=== PATIENT | female | born 1940 | race Caucasian/White ===

== ENCOUNTER 2021-08-22 22:54 | Emergency (ER) | payer MEDICARE, OTHER, SELFPAY ==
[2021-08-22 22:56] VITALS: BP 191/73; PULSE 98; RESP 18; TEMP 36.6; O2SAT 100; BMI 18.8
[2021-08-22 23:23] LABS: Appearance Urine CLOUDY; Color Urine STRAW; Glucose Urine UA NEG (NEG); Leukocyte Esterase Urine 3+ (NEG); Nitrite Urine NEG (NEG); UACC Culture Trigger YES; Urine Blood 3+ (NEG); Urine Ketones NEG (NEG); Urine Protein 2+ MG/DL (NEG-TRACE)
[2021-08-22 23:29] LABS: Bacteria Urine 2+ /LPF; Squamous Epithelial Cell Urine 1+ /LPF; UACC CULT YES
--- NOTE | 2021-08-22 23:40 | ED.FEMALEGU ---
HPI - Female Genitourinary General Chief complaint: Urogenital-Female Stated complaint: ? uti Time Seen by Provider: 08/22/21 23:24 Source: patient Mode of arrival: ambulatory Limitations: no limitations History of Present Illness HPI Narrative: 81-year-old female who presents emergency department for evaluation of burning urination and frequency x2 days. She states that she has had burning urination for 2 days, she states that today she developed urinary frequency. She also had chills but no fever. She had fatigue. She had no nausea, vomiting, diarrhea, abdominal or flank pain. Patient states that she had a urine infection 5 years prior in the symptoms felt similar, at that time however she also had hematuria. Related Data Previous Rx's Medication Instructions Recorded cephalexin 500 mg capsule 500 mg PO BID 7 Days #14 cap 08/22/21 phenazopyridine 100 mg tablet 100 mg PO TID PRN #10 tab 08/22/21 (Pyridium) Allergies Allergy/AdvReac Type Severity Reaction Status Date / Time codeine [CODEINE] Allergy Intermediate NAUSEA & Unverified 01/20/20 15:56 VOMITING Review of Systems Review of Systems: Yes all other systems are reviewed and are negative [facility] Past Medical History [facility] Narrative: Past medical history: Hypertension. Non-Hodgkin's lymphoma treated 22 years prior. Past surgical history: Hysterectomy. Social history: She denies tobacco use. She occasionally drinks alcohol. She denies drug use. Social History Social History Advance Directives: No Physical Exam Vital Signs: Vital Signs: Last Vital Signs Temp 97.8 F 08/22/21 22:56 Pulse 98 08/22/21 22:56 Resp 18 08/22/21 22:56 BP 191/73 H 08/22/21 22:56 Pulse Ox 100 08/22/21 22:56 BMI result Body Mass Index 18.8 Const: Other: Very pleasant and cooperative female patient, she does not appear to be in distress, she answers all questions appropriately HEENT: Head: Yes normal to inspection, Yes normocephalic and Yes atraumatic Ears: external ears normal General nose exam: Normal external nose present Face and sinus: Yes normal facial exam Mouth: Normal oral and palatal mucosa present Throat: Yes posterior oropharynx normal Eyes: General: appearance normal, both eyes and all related structures Pupils: Equal, round and reactive pupils present Neck: Neck: Yes normal visual inspection, Yes no lymphadenopathy, Yes trachea midline and Yes supple Chest: Chest palpation & inspection: normal inspection of the chest and normal palpation of entire chest wall Resp: Effort & Inspection: normal respiratory effort and able to speak in complete sentences Auscultation: clear to auscultation bilaterally Cardio: Rate: regular rate Rhythm: regular rhythm Heart sounds: S1 normal heart sound present, S2 normal heart sound present and no murmurs GI: Inspection: Yes normal to inspection Palpation (GI): Soft to palpation, nontender and no guarding Auscultation: normal bowel sounds : General: Yes no CVA tenderness Back/Spine/Pelvis: Back: no CVA tenderness Skin: General skin exam: no rashes or lesions noted Neuro: Cranial nerves: Yes CN's II-XII intact bilaterally and Yes Equal, round and reactive pupils present Cognition (Neuro): normal cognition Motor exam (neuro): 5/5 motor strength present throughout Extrem: General: Yes normal to inspection Course Course Course Narrative: 81-year-old female who presents emergency department for evaluation of 2 days of dysuria, frequency, 1 day chills and fatigue. Patient's vital signs did reveal an elevated blood pressure of 191/73 otherwise were unremarkable. Her exam was normal with no CVA tenderness or suprapubic tenderness. Urinalysis revealed 2+ protein, 3+ blood, 3+ leukocyte esterase. Microscopic revealed 1-4 RBCs, 76-150 WBCs, 1+ squamous cells, 2+ bacteria. Patient's presentation and urine results are consistent with a urinary tract infection/cystitis. The patient was started on Keflex 500 mg q.12 hours x7 days, she was given her 1st dose in the emergency department. She is also given a dose of Pyridium 200 mg orally. She was given a prescription for Pyridium 100 mg 3 times a day as needed x2 days. She is given printed and verbal instructions and discharged home. MDM - Female Genitourinary Lab Data Labs: Lab Results 08/22/21 Range/Units 23:14 Urine Color STRAW Urine Appearance CLOUDY Urine pH 7.0 (5.0-8.0) Ur Specific Erhard 1.010 (1.005-1.025) Urine Protein 2+ H (NEG-TRACE) MG/DL Urine Glucose (UA) NEG (NEG) MG/DL Urine Ketones NEG (NEG) MG/DL Urine Blood 3+ H (NEG) Urine Nitrite NEG (NEG) Ur Leukocyte Esterase 3+ H (NEG) Urine RBC 1-4 (0) /HPF Urine WBC 76-150 H (0-4) /HPF Ur Squamous Epith Cells 1+ /LPF Urine Bacteria 2+ /LPF Discharge Plan Discharge Clinical Impression: Urinary tract infection Patient Disposition: Home, Self-Care Instructions: Urinary Tract Infection in Women (ED) Additional Instructions: Your symptoms are consistent with a urinary tract infection, most likely located in your bladder. Your urine sample is consistent with a urine infection, you have white blood cells and bacteria in your urine. I am starting you on an antibiotic called Keflex (cephalexin) 500 mg pills, take 1 pill every 12 hours for 7 days. I am also starting you on a medication for the burning sensation couple Pyridium (phenaxopyridine) 100 mg pills, take 1 pill every 6 hours while awake as needed for burning sensation. This medication will turn your urine bright orange. Follow-up with your doctor in 2 days. Please return to the emergency department if your symptoms get worse or if you develop any symptoms that are concerning to you. Prescriptions: New phenazopyridine [Pyridium] 100 mg tablet 100 mg PO TID PRN (Reason: Burning urination) Qty: 10 0RF cephalexin 500 mg capsule 500 mg PO BID 7 Days Qty: 14 0RF
[2021-08-22] MEDS: Phenazopyridine HCL 200 MG TABLET PO (23:57)
--- NOTE | 2021-08-23 | ED.FEMALEGU ---
HPI - Female Genitourinary General Chief complaint: Urogenital-Female Stated complaint: ? uti Time Seen by Provider: 08/22/21 23:24 Source: patient Mode of arrival: ambulatory Limitations: no limitations History of Present Illness HPI Narrative: 81-year-old female who presents the [facility] presents emergency department for evaluation of 2 days of dysuria, 1 day of fatigue, dysuria, urinary frequency and chills. She denied nausea, vomiting, abdominal pain or flank pain. She states she had a urinary tract infection 5 years prior but does not get frequent urinary tract infections. MD elicited complaint: dysuria Onset (ago): day(s) (2) Severity: mild Female Urogenital Radiation: Non-Radiating Vaginal discharge: none Vaginal bleeding: none Urinary symptoms: Dysuria and Frequency Exacerbating factors: none Relieving factors: none Associated symptoms: chills and other (Fatigue) Treatment prior to arrival: none Related Data Previous Rx's Medication Instructions Recorded cephalexin 500 mg capsule 500 mg PO BID 7 Days #14 cap 08/22/21 phenazopyridine 100 mg tablet 100 mg PO TID PRN #10 tab 08/22/21 (Pyridium) Allergies Allergy/AdvReac Type Severity Reaction Status Date / Time codeine [CODEINE] Allergy Intermediate NAUSEA & Unverified 01/20/20 15:56 VOMITING ibuprofen [From Motrin] Allergy Seizure Verified 08/23/21 00:01 Review of Systems Review of Systems: Yes all other systems are reviewed and are negative [facility] Past Medical History [facility] Narrative: Past medical history: Hypertension, non-Hodgkin's lymphoma 22 years prior. Past surgical history: Hysterectomy social history: She denies tobacco use. She occasionally drinks alcohol. She denies drug use. Social History Social History Advance Directives: No Physical Exam Vital Signs: Vital Signs: Last Vital Signs Temp 97.8 F 08/22/21 22:56 Pulse 98 08/22/21 22:56 Resp 18 08/22/21 22:56 BP 191/73 H 08/22/21 22:56 Pulse Ox 100 08/22/21 22:56 BMI result Body Mass Index 18.8 Const: General: cooperative and no acute distress Orientation/consciousness: oriented to person and oriented to place Limitations: no limitations HEENT: Head: Yes normal to inspection, Yes normocephalic and Yes atraumatic Ears: external ears normal General nose exam: Normal external nose present Face and sinus: Yes normal facial exam Mouth: Normal oral and palatal mucosa present Throat: Yes posterior oropharynx normal Eyes: General: appearance normal, both eyes and all related structures Pupils: Equal, round and reactive pupils present Neck: Neck: Yes normal visual inspection, Yes no lymphadenopathy, Yes trachea midline and Yes supple Chest: Chest palpation & inspection: normal inspection of the chest and normal palpation of entire chest wall Resp: Effort & Inspection: normal respiratory effort and able to speak in complete sentences Auscultation: clear to auscultation bilaterally Cardio: Rate: regular rate Rhythm: regular rhythm Heart sounds: S1 normal heart sound present, S2 normal heart sound present and no murmurs GI: Inspection: Yes normal to inspection Palpation (GI): Soft to palpation, nontender and no guarding Auscultation: normal bowel sounds : General: Yes no CVA tenderness Back/Spine/Pelvis: Back: no CVA tenderness Skin: General skin exam: no rashes or lesions noted Neuro: General: oriented to person and oriented to place Cranial nerves: Yes CN's II-XII intact bilaterally and Yes Equal, round and reactive pupils present Cognition (Neuro): normal cognition Motor exam (neuro): 5/5 motor strength present throughout Extrem: General: Yes normal to inspection Psych: Appearance: grossly normal Speech and movement: Normal speech and movement present Affect: normal affect Attitude: cooperative Thought process: Normal thought process present Thought content: Normal thought content present Course Course Course Narrative: 81-year-old female who presents emergency department for evaluation of 2 days of dysuria, frequency, fatigue and chills. Vital signs revealed an elevated blood pressure of 191/73 otherwise unremarkable. Exam was otherwise unremarkable with no abdominal tenderness or flank tenderness. Urinalysis revealed 3+ blood, 3+ leukocyte esterase. Microscopic analysis revealed 1-4 RBCs, 76-150 WBCs, 2+ bacteria. Patient's presentation is consistent with urinary tract infection. The patient was started on Keflex 500 mg twice a day for 7 days and Pyridium. She was given her 1st dose of these medications here in the emergency department she was given printed and verbal instructions and discharged home. MDM - Female Genitourinary Lab Data Labs: Lab Results 08/22/21 Range/Units 23:14 Urine Color STRAW Urine Appearance CLOUDY Urine pH 7.0 (5.0-8.0) Ur Specific Kirk 1.010 (1.005-1.025) Urine Protein 2+ H (NEG-TRACE) MG/DL Urine Glucose (UA) NEG (NEG) MG/DL Urine Ketones NEG (NEG) MG/DL Urine Blood 3+ H (NEG) Urine Nitrite NEG (NEG) Ur Leukocyte Esterase 3+ H (NEG) Urine RBC 1-4 (0) /HPF Urine WBC 76-150 H (0-4) /HPF Ur Squamous Epith Cells 1+ /LPF Urine Bacteria 2+ /LPF Discharge Plan Discharge Clinical Impression: Urinary tract infection Patient Disposition: Home, Self-Care Instructions: Urinary Tract Infection in Women (ED) Additional Instructions: Your symptoms are consistent with a urinary tract infection, most likely located in your bladder. Your urine sample is consistent with a urine infection, you have white blood cells and bacteria in your urine. <del>I</del> <del>am</del> <del>starting</del> <del>you</del> <del>on</del> <del>an</del> <del>antibiotic</del> <del>called</del> <del>Keflex</del> <del>(cephalexin)</del> <del>500</del> <del>mg</del> <del>pills,</del> <del>take</del> <del>1</del> <del>pill</del> <del>every</del> <del>12</del> <del>hours</del> <del>for</del> <del>7</del> <del>days.</del> Take Macrobid 1 pill every 12 hours x5 days. I am also starting you on a medication for the burning sensation couple Pyridium (phenaxopyridine) 100 mg pills, take 1 pill every 6 hours while awake as needed for burning sensation. This medication will turn your urine bright orange. Follow-up with your doctor in 2 days. Please return to the emergency department if your symptoms get worse or if you develop any symptoms that are concerning to you. NB: I was contacted by the pharmacist at [facility] stating that the patient has cephalosporins listed as an allergy. The patient denies this however given this reported allergy I decided to treat the patient with Macrobid instead. Patient was given Macrobid here in the emergency department. She is to take Macrobid b.i.d. for 5 days. Prescriptions: New phenazopyridine [Pyridium] 100 mg tablet 100 mg PO TID PRN (Reason: Burning urination) Qty: 10 0RF cephalexin 500 mg capsule 500 mg PO BID 7 Days Qty: 14 0RF
[2021-08-23] MEDS: Nitrofurantoin Monohyd/M-Cryst 100 MG CAPSULE PO (00:03)
== END 2021-08-23 00:16 | disposition home or self-care (01) ==
PROVIDERS: Emergency Provider Emergency Medicine Emergency Medical Services; PCP Internal Medicine
DX: N39.0 Urinary tract infection, site not specified (principal); I10 Essential (primary) hypertension
CPT/HCPCS: 81001; 87086; 87088; 87186; 99283; 99284

== ENCOUNTER 2024-05-24 08:30 | Day surgery (SDC) | payer MEDICARE, OTHER, SELFPAY ==
--- OUTSIDE RECORDS SUMMARY | 2024-04-14 01:39 | XMS_ITS | Continuity of Care Document ---
Author Organization [facility] Address [address] [place] [address]- Care Team Providers Care Office Asst Name Role Phone Paula Burris MD Primary Care [id number] Date(s): 03/18/24 - 03/25/24 [facility] [address] [place], [place] [address] Encounter Diagnosis Medicare annual wellness visit, subsequent(Discharge Diagnosis) - 03/18/24 Hypertension(Discharge Diagnosis) - 03/18/24 History of squamous cell carcinoma of skin(Discharge Diagnosis) - 03/18/24 Attending Physician: Paula Burris MD Encounter Type: Office Visit Allergies, Adverse Reactions, Alerts Substance Criticality Severity Reaction Reaction Severity Status codeine Active Advil seizures Active Aleve seizures Active Immunizations Given and Recorded Vaccine Date Status Refusal Reason influenza virus vaccine, inactivated 03/13/23 Give n influenza virus vaccine, inactivated 03/11/22 Give n influenza virus vaccine, inactivated 1 03/05/21 Gi michael influenza virus vaccine, inactivated 03/06/18 Eddie rded influenza virus vaccine, inactivated 2 02/17/17 Re corded influenza virus vaccine, inactivated 3 02/19/16 Re corded influenza virus vaccine, inactivated 03/05/14 Eddie rded influenza virus vaccine, inactivated 4 01/28/13 Re corded influenza virus vaccine, inactivated 5 02/20/12 Gi michael influenza virus vaccine, inactivated 02/17/12 Eddie rded influenza virus vaccine, inactivated 6 12/31/10 Gi michael influenza virus vaccine, inactivated 7 01/22/10 Gi michael zoster vaccine, inactivated 07/08/22 Recorded Zoster Vaccine Live 03/19/22 Recorded [id number] bivalent booster vax 03/19/22 Recorded SARS-CoV-2 (COVID-19) mRNA BNT-162b2 vac 04/30/21 Recorded SARS-CoV-2 (COVID-19) mRNA BNT-162b2 vac 08/05/20 Given SARS-CoV-2 (COVID-19) mRNA BNT-162b2 vac 07/15/20 Given Influenza Virus Vaccine (oldterm) 02/17/20 Recorde d Influenza Virus Vaccine (oldterm) 02/22/19 Recorde d tetanus-diphtheria toxoids (Td) 08/04/18 Recorded tetanus-diphtheria toxoids (Td) 04/25/16 Given tetanus-diphtheria toxoids (Td) 8 02/11/07 Given tetanus-diphtheria toxoids (Td) 9 11/18/06 Given pneumococcal 13-valent vaccine 10 04/25/15 Recorde d Fluzone Preservative-Free (oldterm) 11 02/20/15 Re corded influ virus vac, H1N1, inactive(oldterm) 12 05/16/09 Given Influenza Inactive (IM) (oldterm) 02/10/07 Given Pneumococcal Vaccine (oldterm) 02/11/06 Given 1Result Comment: [facility] [id number] 2Result Comment: [02/19/2017] done at [facility] form received HIGH DOSE 3Result Comment: [03/04/2016] DONE AT [facility] FORM RECEIVED HIGH DOSE 4Result Comment: [01/29/2013] DONE AT [facility] FORM RECEIVED 5Admin Note: [facility] 6Admin Note: per pt receive ated [facility] 7Admin Note: given at [facility], all info from form 8Admin Note: [facility] 9Admin Note: OFFERED 10Result Comment: [05/02/2016] done at pharmacy... per pt 11Result Comment: [02/28/2015] high dose 12Admin Note: PER [facility] FORM Medications Biotin 0 Refills, Maintenance, 04/24/15 10:30:31 AM EST Start Date: 04/24/15 Status: Ordered Repeat number: 1 Estrace Vaginal Cream 0.1 mg/g = 1 Gm, Vaginally, Daily at bedtime, Use nightly at bedtime for 2 weeks, then use twice a week at bedtime, # 42.5 Gm, 2 Refills, Maintenance, 09/22/23 10:23:00 AM EDT, [facility]/pharmacy #[id number], Partial fillupon patient request if the prescription is for a schedule II opioid drug., 163, cm, 09/22/23 10:11:00 EDT, Height, 51.3, kg, 09/22/23 10:11:00 EDT, Dry Weight Start Date: 09/22/23 Status: Ordered Quantity: 42.5 Unit: g Repeat number: 3 fexofenadine 180 mg oral tablet 1 tablet, By Mouth, Daily, NOT COVERED, [facility]., # 90 tablet, 1 Refills, Maintenance, 03/18/24 10:29:00 AM EST, [facility]/pharmacy #[id number], 163, cm, 03/18/24 10:08:00 EST, Height, 51.3, kg, 09/22/23 10:11:00 EDT, Dry Weight Start Date: 03/18/24 Status: Ordered Quantity: 90.0 Unit: tablet Repeat number: 2 losartan 25 mg oral tablet 25 mg, 1, tablet, By Mouth, 2 times a day, # 180 tablet, Refills 1, Tot. Refills 1, Maintenance, 03/18/24 10:29:00 AM EST, Route to Pharmacy Electronically, [facility]/pharmacy #[id number], Partial fill upon patient request if the prescription is for a schedule II opioid drug., 163, cm, 03/18/24 10:08:00 EST, Height, 51.3, kg, 09/22/23 10:11:00 EDT, Dry Weight Start Date: 03/18/24 Stop Date: 09/14/24 Status: Ordered Quantity: 180.0 Unit: tablet Repeat number: 2 PreserVision 0 Refills, Maintenance, 06/16/23 11:47:00 AM EST, Partial fill upon patient request if the prescription is for a schedule II opioid drug. Start Date: 06/16/23 Status: Ordered Repeat number: 1 Triamcinolone Once, 0 Refills, Maintenance, 06/16/23 11:47:00 AM EST, Partial fill upon patient request if the prescription is for a schedule II opioid drug. Start Date: 06/16/23 Status: Ordered Repeat number: 1 Problem List Condition Confirmation Course Effective Dates Status H ealth Status Informant Hypertension Confirmed Active Genitourinary syndrome of menopause Confirmed Active History of squamous cell carcinoma of skin Confirmed Active Lymphoma Confirmed Active Diagnosis Diagnosis Type Effective Dates Health Status Clinical Service Informant Medicare annual wellness visit, subsequent Discharge Diagnosis 03/18/24 Hypertension Discharge Diagnosis 03/18/24 History of squamous cell carcinoma of skin Discharge Diagnosis 03/18/24 Vital Signs Most recent to oldest [Reference Range]: 1 2 3 Height 163.00 cm (03/18/24 10:47 AM) 163.00 cm (03/18/24 10:08 AM) 163.00 cm (03/18/24 10:07 AM) Weight 51.6 kg (03/18/24 10:07 AM) Oxygen Saturation [94-100 %] 98 % (03/18/24 10:07 AM) Pulse Rate [55-90 bpm] 78 bpm (03/18/24 10:07 AM) Body Mass Index [18.5-24.99 kg/m2] 19.42 kg/m2 (03/18/24 10:07 AM) Blood Pressure [90-138/55-84 mm Hg] 180/70mm Hg *H* (03/18/24 10:47 AM) 200/86mm Hg *H* (03/18/24 10:08 AM) 189/86mm Hg *H* (03/18/24 10:07 AM) Blood pressure sites Arm, left (03/18/24 10:07 AM) Weight Obtained Via Standing scale (03/18/24 10:07 AM) Social History Social History Type Response Smoking Status Former smoker; Type: Cigarettes; Other: quit at age 21; Number of years: 3; entered on: 04/24/15 Sex Sex Representation Female (finding) Note * Veronika Valadez: PERFORM Event Display: Patient Education/Instruction Authored Date: Ambulatory Adult Visit Summary [facility] [address] [place], [place] [id number] Name: RODO MARTÍNEZ : 1940?? Visit: 03/18/2024 09:53?? Ambulatory Visit Instructions ?? Your Care Team Primary Care Provider Paula Burris MD? This Visit Provider Paula Burris MD Your Diagnosis Medicare annual wellness visit, subsequent Hypertension History of squamous cell carcinoma of skin Vitals Signs Pulse Rate: 78 bpm Height: 163 cm Systolic Blood Pressure:??180 mm Hg??High Weight: 51.6 kg Diastolic Blood Pressure: 70 mm Hg Body Mass Index: 19.42 kg/m2 Oxygen Saturation: 98 % Body surface area: 1.53 What to do next Follow-Up Appointments Follow Up with??Paula Burris MD When:??09/16/2024 08:40 AM EDT Where: [facility] [place] [address]- Follow up Appointment - Ordered?-- 6 months, 03/18/24 10:31:00 EST Future Orders CBC w/ Differential - Routine, Once, 03/18/24 10:31:00 EST, Order for Today, [facility], Blood?? Basic Metabolic Panel - Routine, Once, 03/18/24 10:31:00 EST, Order for Today, [facility], Blood?? Hepatic Function Panel - Routine, Once, 03/18/24 10:31:00 EST, Order for Today, [facility], Blood?? Thyroid Panel - Routine, Once, 03/18/24 10:31:00 EST, Order for Today, [facility], Blood?? Medications The list below reflects the information in our records and provided by you today along with any changes made during this visit. Please continue your medications until treatment is completed or stopped by your provider. If this is different from the information you have or there are other questions,please contact the prescribing provider. What How Much When Instructions Changed Multivitamin With Minerals (PreserVision) Unchanged Biotin Unchanged Estradiol Topical (Estrace Vaginal Cream 0.1 mg/ g) 1 gram Vaginally Daily at Bedtime Use nightly at bedtime for 2 weeks, then use twice a week at bedtime ?? Unchanged Fexofenadine (fexofenadine 180 mg oral tablet) 1 tab(s) Oral Daily NOT COVERED, [facility]. ?? Pickup at [facility]/pharmacy #[id number] Unchanged Losartan (losartan 25 mg oral tablet) 1 tab(s) Oral Twice a day Duration: 90 Days Pickup at [facility]/pharmacy #[id number] Unchanged Triamcinolone Once Pharmacy Information [facility]/pharmacy #[id number]: [address] [place] [phone] ?? What How Much When Comments Stop Taking Triamcinolone Topical (triamcinolone 0.1% topical cream) 1 bertin Topically Twice a day Duration: 14 Days Test Performed Below is a partial list of the tests performed during your Visit. You may have had other tests and procedures not included in this list. Please discuss all test results with your provider. Basic Metabolic Panel?-- Results Pending -- CBC w/ Differential?-- Results Pending -- Hepatic Function Panel?-- Results Pending -- Thyroid Panel?-- Results Pending -- Medications and Immunizations Administered Medications Given During Visit No medications given during this visit.?? Allergies (NKA means No Known Allergies) Advil??(seizures) Aleve??(seizures) codeine Common Emergency Awareness Tips IS IT A STROKE? Act FAST and Check for these signs: FACE Does the face look uneven? ARM Does one arm drift down? SPEECH Does their speech sound strange? TIME Call at any sign of stroke ?? Heart Attack Signs Chest discomfort: Most heart attacks involve discomfort in the center of the chest and lasts more than a few minutes, or goes away and comes back. It can feel like uncomfortable pressure, squeezing, fullness or pain. Discomfort in upper body: Symptoms can include pain or discomfort in one or both arms, back, neck, jaw or stomach. Shortness of breath: With or without discomfort. Other signs: Breaking out in a cold sweat, nausea, or lightheaded. Remember, MINUTES DO MATTER. If you experience any of these heart attack warning signs, call to get immediate medical attention! ?? Smoking can increase your chances of developing chronic health problems and can cause harmful effects to other family members in your house. If you smoke, you are strongly encouraged to quit. Please call [employer] at [phone] or [phone] ([phone]) or log in to [email or web address] for referrals to smoking cessation programs. ?? The National Suicide Prevention Hotline is available 25/11 if you or someone you know needs to find a reason to keep living. By calling 2-212-376-saoc (1178) you'll be connected to a skilled, trained counselor at a crisis center in your area. [facility] [employer] Portal You can view and manage your care through the patient portal or by using a health care bertin of your choosing. [employer] is a website that allows you to securely view your medical information including your hospital discharge summary, office visit summaries, medications and follow-up visits. You can also request appointments, renew medications, and request access to your medical information using a health care bertin of your choosing, or just ask a question. You can enroll at [email or web address] or register during your next office visit. [facility], in keeping with [facility] guidance, no longer requires face masks for staff, patientsor visitors in most situations. Similiar to time spent indoors at other locations, there is the chance that you were exposed to repiratory viruses during your time with us (such as flu or COVID-19). If you develop symptoms concerning for a viral respiratory infection, please seek testing (and treatment if indicated) from your medical provider or home test kit. ?? Disclaimer: The information provided is of a general nature and is intended to be used in conjunction with the recommendations and advice of your health care practitioner. Every effort has been made to ensure that the information provided is accurate and complete at the time it is provided to you however, as your needs change, or, as new information becomes available, different or additional instructions may be required. ?? If you have questions, please consult with your primary care provider or pharmacist, as appropriate. This information is not intended to serve as substitution for assessment and evaluation by a qualified health care provider. If you do not have a primary care provider, you may find a [facility] provider by calling [facility] [employer] Link at [phone]. Patient Care team information Care Team Personnel Name: Zara Jara Position: [facility] Onco RN Member Role: Primary Care Nurse Name: Paula Burris MD Position: [facility] Physician - Primary Care Member Role: PCP Address: [address] [place] [address] Adult and Pediatric Medicine [address] Telecom: Name: Michell Olvera Position: [facility] Sourcing Specialist Member Role: Medicaid Collection Specialist Care Team Related Persons Name: HIWOT MARTÍNEZ Name: EULALIO STUBBS Name: SHEA LANDA Insurance Providers Guarantor name: RODO MARTÍNEZ Health Plan Information #: 2 Payer: [facility] Member Number: [id number] Policy Number: NA Group Number: [id number] Health Plan Information #: 1 Payer: MEDICARE PART B OUTPT Member Number: [id number] Policy Number: NA Group Number: NA
--- OUTSIDE RECORDS SUMMARY | 2024-04-14 01:40 | XMS_ITS | Data Portability ---
Author Organization [place] - [facility], Allergy Address [address] [address] Care Team Providers Care Recovery Operator Helper Name Role Phone GRECIA SAGASTUME Primary Care Provider Assessment Encounter Date Assessment Date Assessment LastModified by Organization Details LastModified Time 04/09/2024 04/09/2024 84-year-old female presents for cerumen removal. Cerumen impaction removed bilaterally. Bilateral tympanic membranes are intact with well aerated middle ear spaces. She will follow-up in 4 months for routine debridement, or sooner with any concerns. [email or web address] Not available 04/09/2024 11:35:04 Plan of Treatment Reminders Order Date Submit Date Provider Last Modified By Organization Details Last Modified Time Details Appointments Establish ed 15 2024 10:30A M CATHRYN ORTIZ PA-C Not available Not available Not available Lab None recorded. Referral None recorded. Procedures None recorded. Surgeries None recorded. Imaging None recorded. Medication Orders None recorded. Patient TargetsNo targets recorded. Patient InstructionsNo instructions recorded. Reason for Referral None Reported. Problems Name Problem SNOMED Code Status Onset Date Resolution Date Notes Provider Name and Address Organization Details Recorded Time Impacted cerumen of bilateral ears 87512207902 43364 Active 2021 Impacted cerumen, bilateral ; Note: Date Diagnosed : 01/17/2022 4:33 PM (H61.23) Not Available [facility] 02:51:38 Abrasion of skin of left ear 25026387571 730985 Active 2021 Abrasion of left ear, initial encounter ; Note: Date Diagnosed : 01/17/2022 5:11 PM (S00.412A ) Not Available [facility] 4 02:51:37 Sensorine ural hearing loss of bilateral ears 251712373 Active 2021 Sensorine ural hearing loss, bilateral ; Note: Date Diagnosed : 01/17/2022 4:42 PM (H90.3) Not Available [facility] 4 02:51:35 Problem Notes None recorded. Procedures Surgical History Date Name Laterality Status Provider Name and Address Organization Details Recorded Time 4 Cerumen removal without microscope bilat completed CATHRYN ORTIZ PA-C [address] [place] [address],[address], [address], [facility] - [facility] 04/09/2024 11:18:47 Imaging Results None recorded. Procedure Notes None recorded. Medical Equipment None Reported. Allergies Allergen ID Allergen Name Allergen Category Reaction Reaction Severity Criticality Documentation Date Start Date Code Code System Note Provider Name and Address Organization Details Recorded Time [id number] naproxen medicatio n other Not available Not available 09/16/2023 7258 RxNorm React ion: Unkno wn; Not Available [facility] 4 01:14:45 633995 codeine medicatio n other Not available Not available 09/16/2023 2670 RxNorm React ion: Unkno wn; Not Available [facility] 4 01:14:46 Medications Name Sig Start Date Stop Date Status Note LastModified by Organization Details LastModified Time sodium chloride 5 % eye drops active Medicati on ID: 550396 B rand Name: sodium chloride Send Method: E-Prescr ibed Sub s Allowed: subs OK Speci al Instruct ion: INSTILL 1 DROP IN BOTH EYES THREE TO FOUR TIMES A DAY Medi cationGe nericNam e: sodium chloride Not Available Not Available Not Available amlodipin e 2.5 mg tablet 04/09 completed Medicati on ID: 641081 B rand Name: amlodipi ne Send Method: E-Prescr ibed Sub s Allowed: subs OK Medic ationGen ericName : amlodipi ne Not Available Not Available Not Available fexofenad ine 180 mg tablet TAKE 1 TABLET BY MOUTH EVERY DAY active Not Available Not Available No t Available triamcino lone acetonide 0.1 % topical cream APPLY TO AFFECTED AREA TWICE A DAY FOR 14 DAYS 04/09 completed Not Available Not Available Not Available betametha sone valerate 0.1 % topical cream USE 1 APPLICAT ION TOPICALL Y DAILY FOR 7 DAYS 04/09 completed Not Available Not Available Not Available losartan 25 mg tablet TAKE 1 TABLET BY MOUTH TWICE A DAY active Not Available Not Available No t Available estradiol 0.01% (0.1 mg/gram) vaginal cream PLEASE SEE ATTACHED FOR DETAILED DIRECTIO NS active Not Available Not Available No t Available Vitals None Recorded Social History None recorded. Functional Status None recorded. Mental Status None recorded. Family History Nothing Reported. Medical History Condition Response Hypertension Y Gynecological HistoryNo gynecological history recorded. Obstetrics History GPAL:G 0 P 0 0 0 0 Past Encounters Encounter ID Performer Location Encounter Start Date Encounter Closed Date Diagnosis/Indication Diagnosis SNOMED-CT Code Diagnosis ICD10 Code [id number] MAX TESFAYE MD [facility] [address] [phone] 04/09/2024 11:13:37 04/09/2024 11:56:17 Impacted cerumen of bilateral ears [id number] 898607 H61.23 Health Concerns Section Related Observation LastModified by Organization Detai ls LastModified Time None Recorded Concern Status LastModified by Organization Details LastModified Time None Recorded Advance Directives Directive None Recorded Payers Encounter Date Sequence Insurance Name Policy Number Policy Childress Covered Member ID Childress Member ID Guarantor Name 04/09/2024 2 [employer] - [facility] [id number] Wendi Lay [id number] Wendi Lay 04/09/2024 1 [place]IC[place] [employer] Wendi Lay [id number] Wendi Lay Notes Date Note Type Note Provider Name and Address Organization Details Recorded Time 04/09/2024 text/html 84-year-old female presents for cerumen removal. She is followed by Anne in audiology. No concerns today. MAX TESFAYE MD [address] [place] [address], [phone], [facility] - [facility] 04/09/2024 17:07:33 OBGyn Episode No OBEpisode recorded.
--- OUTSIDE RECORDS SUMMARY | 2024-04-14 01:40 | XMS_ITS ---
Author Organization [facility] Address [address] [place] [address] Care Team Providers Care Lapping Machine Operator Name Role Phone Fatuma SHARP, Paula Primary Care Provider Unavailab Suman Hightower Unavailable [phone] Encounters Encounter Location Date Provider Diagnosis [address] [address] 01/09/2024 Suman Castaneda Plan Of Treatment Next Appt Details Provider Name:Suman Castaneda , 06/29/2024 09:00:00 AM, [address] [place] [address], [phone], Progress Notes * Wendi LYADOB: [birth year] (84 yo F)Acc No.[id number]:01/09/2024 Progress Note Patient:?Wendi LAY Provider:?Suman Castaneda DPM :1940???Age:84 Y???Sex:Female D ate:01/09/2024 Address:[address] [place] [address] Pcp:Paula Burris MD Subjective: * Chief Complaints: * ??? * Medical History:? Objective: * Vitals:? Assessment: Plan: * Treatment: * Images: * The named appointment provid er may or may not be the originator of this progress note, and it is not deemed complete until electronically signed by the appointment provider. Sign off status: Pending * Provider:?Suman Castaneda DPM Date:?2023 Generated for Gisselle reed/Chad/Yariel on:?04/14/2024 01:39 AM EST
--- OUTSIDE RECORDS SUMMARY | 2024-04-14 01:40 | XMS_ITS ---
Author Organization [facility] Address [address] [place] [address] Care Team Providers Care Manager Fiber Name Role Phone Paula Burris MD Primary Care Provider Unavailab Suman Hightower Unavailable [phone] Allergies Allergen (clinical drug ingredient) Drug/Non Drug Allergy documented on EMR Reaction Allergy Type Onset Date Status ibuprofen Advil Unknown Drug Allergy Active naproxen Aleve Unknown Drug Allergy Active codeine Codeine Unknown Drug Allergy Active REASON FOR VISIT At Risk Footcare, Painful Nail(s) aggrevated by shoes and causing difficulty standing/walking., Painful Toe/Nail(s) Medications Medication SIG (Take, Route, Frequency, Duration) Notes Start Date End Date Status amLODIPine Besylate 5 MG 1 tablet Orally Once a day for 30 days am Not-Taking Biotin Active Doxycycline Hyclate 100 MG 1 capsule Orally Once a day for 10 day(s) Antibiotic for 10 days Active Biotin Active amLODIPine Besylate 2.5 MG 1 tablet Orally Once a day for 30 day(s) pm Not-Taking PreserVision AREDS A ctive Vitamin C Active Losartan Potassium 50 MG 1 tablet Orally Once a day twice a day Active Doxycycline 10 days Not-Taki ng Estradiol 0.1 MG/GM as directed Vaginal Active Zinc Active Vitamin D3 Active Probiotic Not-Taking PreserVision AREDS A ctive Ammonium Lactate 12 % 1 application to affected area Externally to feet Twice a day for 30 days Active Multivitamin Active Social History Tobacco Use: Social History Observation Description Date Details (start date - stop date) Former Smoker NA - NA Tobacco Use/Smoking Question Answer Notes Are you a: former smoker Additional Findings: Tobacco Non-User Current no n-smoker Tobacco use other than smoking: Question Answer Notes Are you an other tobacco user? No Vital Signs Height 64.17 in 02/27/2024 Weight 108 lbs 02/27/2024 BMI 18.44 kg/m2 02/27/2024 Procedures Procedure Date Ordered Date Performed Result Body Sit e 15988-UPEVQMS NAIL, 6 OR MORE 02/27/2024 N/A 18714-ZERY SKIN LESIONS, OVER 4 02/27/2024 N/A Encounters Encounter Location Date Provider Diagnosis [facility] [place] [address] [place] [address] 02/27/2024 Suman Castaneda Atherosclerosis of red devil artery of both lower extremities, with unspecified presence of clinical manifestation I70.203 ; Tinea unguium B35.1 ; Pain in right toe(s) M79.674 ; Pain in left toe(s) M79.675 and Subungual hematoma of left foot, initial encounter S90.222A Assessments Encounter Date Diagnosis (ICD Code) Assessment Notes Treatment Notes Treatment Clinical Notes Section Notes 02/27/2024 Atherosclerosis of red devil artery of both lower extremities, with unspecified presence of clinical manifestation (ICD-10 - I70.203) 02/27/2024 Tinea unguium (ICD-10 - B35.1) 02/27/2024 Pain in right toe(s) (ICD-10 - M79.674) 02/27/2024 Pain in left toe(s) (ICD-10 - M79.675) 02/27/2024 Subungual hematoma of left foot, initial encounter (ICD-10 - S90.222A) 02/27/2024 Other Plan Of Treatment Pending Test Test Name Order Date 03545-ZGHQRFV NAIL, 6 OR MORE 02/27/2024 06666-MCKN SKIN LESIONS, OVER 4 02/27/20 24 Next Appt Details Follow Up: prn, Reason: Provider Name:Suman Castaneda , 06/29/2024 09:00:00 AM, [address] [place] [address], [address], Procedure Notes * Category Sub-Category Detail Notes Debride Nail 6-10 Nail debridement Nail debridem ent procedure description should have stated: Performance of this nail treatment by a nonprofessional would put this patients foot and overall health at risk. Therefore, nail debridement was performed extensively to reduce/remove overall nail length, girth, thickness, subungual debris, and necrotic tissue, by manual and/or electrical means through the use of a nail nipper and/or dremel-type thread grinder, to a more viable healthy nail plate or bed tissue 6-10. Silver nitrate used for any petechial bleeding as necessary. Definitive antifungal treatment options have been reviewed and discussed with the patient. The patient chooses, no pharmaceutical tx - 65558 Keratoma Treatment Parring or Cutting o f Benign Hyperkeratotic Lesion(s) (-57) More than 4 Lesions - The Benign hyperkeratotic lesions, as described above were pared, and/or cut utilizing a sterile 15 blade, tissue nippers, and/or dremel - 60806 , Q8 Progress Notes * Wendi LAYDOB: [birth year] (84 yo F)Acc No.[id number]:02/27/2024 Progress Note Patient:?HoolehuaWendi camarillo Jayy Provider:?Suman Castaneda DPM :1940???Age:84 Y???Sex:Female D ate:02/27/2024 Address:[address] [place], [place] [id number] Pcp:Paula Burris MD Subjective: * Chief Complaints: * ???At Risk FootcarePainful N ail(s) aggrevated by shoes and causing difficulty standing/walking.Painful Toe/Nail(s) * HPI: ???At Risk footcare:?Pt States Last PCP Visit:?Date?08/26/2023 States has an appt with PCP soon - first week in Nov ???Painful Nails:?Duration:?States Possible Date Of Injury - 02/22/24.? * ROS:?General/Constitutional:?Nausea?denies.?Vomiting?denies.?Hunger Thirst?denies.?Loss appetite?denies.?Chills?denies.?Fatigue?denies.?Fever?denies.?Night Sweats?denies.?Unexplained weight loss?denies.?Unexplained weight gain?denies.?HEENTM:?Dentures?denies.?Dizziness?denies.?Glasses/contacts?admits.?Retinopathy?de nies.?Blurred/double vision?denies.?TMJ?denies.?Discharge/drainage?denies.?Implants?denies.?Sore throat?denies.?Dental implants?denies.?Hard of hearing ?admits.?Difficulty chewing/swallowing/speaking?denies.?Nose bleeds?denies.?Sore mouth?denies.?Respiratory:?On Oxygen?denies.?Pneumonia/pleurisy?denies.?Bronchitis?denies.?Emphysema?denies.?C oughing?denies.?Cough blood?denies.?Shortness of breath?denies.?Wheezing?denies.?Cardiovascular:?Pacemaker?denies.?MVP?denies.?WPW?denies.?CHF?denies.?Heart attack?denies.?Septal defect?denies.?Rapid beat?denies.?Chest pain ?denies.?Atrial Fib.?denies.?Murmur/Palpitations?denies.?Gastrointestinal:?Hemorrhoids?denies.?Stomach/Abdominal pain?denies.?Dark blood stool?denies.?Irritable bowel ?denies.?Constipation?denies.?Diarrhea?denies.?Hematology:?Swelling?denies.?Clots?denies.?Varicose Veins?admits.?Bruising?denies.?Bleeding problem?denies.?Genitourinary:?Blood urine?denies.?Frequent/Painfu/urination/bladder control?denies.?Kidney stones?denies.?Infection (UTI)?denies.?Nephropathy?denies.?sex trans dis (STD)?denies.?Prostate?denies.?Musculoskeletal:?Hammertoes?admits.?Bunions?denies.?Back Pain?denies.?Muscle Cramps/ Resting?denies.?Muscle cramps / walking?denies.?Generalized aches and pains?denies.?Weakness?denies.?Integ.:?Huber?denies.?Scars?denies.?Corns/calluses?admits.?Ingrown nails?admits.?Painful nails?admits.?Open Sores?denies.?Rashes?denies.?Neurologic:?Difficulty sleeping?denies.?Brain disorder?denies.?Numbness?denies.?Balance trouble?denies.?Confusion?denies.?Fainting/blackouts?denies.?Tingling?denies.?Tr emors?denies.? * Medical History:? * Surgical History:?root canal - broke her crowns has to get them replaced Melanoma removal - Right leg - delayed healing 2023 * Hospitalization/Major Diagno stic Procedure:?Fell while jogging - injury to face: needing ER visit- sutures to her lip/mouth 04/2022 * Family History:?Mother: unkn own.?Father: unknown.? * Social History:?Tobacco Use:?Tobacco Use/Smoking?Are you a:?former smoker ?Additional Findings: Tobacco Non-User?Current non-smoker ?Tobacco use other than smoking?Are you an other tobacco user??No * Medications:?TakingLosartan Potassium 50 MG Tablet 1 tablet Orally Once a day, Notes: twice a dayVitamin C PreserVision AREDS Estradiol 0.1 MG/GM Cream as directed Vaginal Doxycycline Hyclate 100 MG Capsule 1 capsule Orally Once a day, Notes: Antibiotic for 10 daysBiotin Biotin Multivitamin PreserVision AREDS Vitamin D3 Zinc Ammonium Lactate 12 % Cream 1 application to affected area Externally to feet Twice a dayTaking Losartan Potassium 50 MG Tablet 1 tablet Orally Once a day, Notes: twice a dayTaking Vitamin C Taking PreserVision AREDS Taking Estradiol 0.1 MG/GM Cream as directed Vaginal Taking Doxycycline Hyclate 100 MG Capsule 1 capsule Orally Once a day, Notes: Antibiotic for 10 daysTaking Biotin Taking Biotin Taking Multivitamin Taking PreserVision AREDS Taking Vitamin D3 Taking Zinc Taking Ammonium Lactate 12 % Cream 1 application to affected area Externally to feet Twice a dayNot- Taking/PRNamLODIPine Besylate 5 MG Tablet 1 tablet Orally Once a day, Notes: amamLODIPine Besylate 2.5 MG Tablet 1 tablet Orally Once a day, Notes: pmProbiotic Doxycycline , Notes: 10 daysMedication List reviewed and reconciled with the patientNot-Taking/PRN amLODIPine Besylate 5 MG Tablet 1 tablet Orally Once a day, Notes: amNot-Taking/PRN amLODIPine Besylate 2.5 MG Tablet 1 tablet Orally Once a day, Notes: pmNot-Taking/PRN Probiotic Not-Taking/PRN Doxycycline , Notes: 10 daysMedication List reviewed and reconciled with the patient * Allergies:?AdvilAleveCodeine yes[Allergies Verified] Objective: * Vitals:?Ht: 64.17, Wt:108, B AR: 18.44, Shoe size:6.5, Wt-k.99 kg. * Examination: ???Vascular: ?DP PULSES(B):? 0/4, B/L.?PT PULSES(B):? 1/4, B/L.?CAPILLARY FILL TIME:? delayed, all digits, B/L.?TROPHIC CONDITION-TEXTURE/ELASTICITY/TURGOR/HAIR GROWTH(B):? decreased, with sparse to absent hair growth, B/L.?TEMPERTURE GRADIENT(C):? decreased, cool to cool, proximal to distal, B/L.?PIGMENTATION:? mottled, B/L.?EDEMA(C):?absent, B/L.?CLAUDICATION(C):?denies, B/L.?REST PAIN:?denies, B/L.?Nails: ?NAILS are:?Elongated, overgrown, dystrophic, lytic, greater than 3mm thick, discolored and friable with crumbly malodorous subungual debris, with pain on palpation, TA, T2, T3, T4, T5, T6, T8, T9 , There is evidence of pain on palpation, and an area of SUBUNGUAL HEMORRHAGIC fluid with a pre-operative size measuring approximately ( 4-5 ) mm square, TA.?Dermatologic: ?SKIN FINDINGS:? Skin exam reveals Keratotic lesion(s) located at, Dorsal, PIPJ, T8, SUB MTH (s), 1, B/L , SUB MTH (s), 5, B/L, Heel(s), B/L.? Assessment: * Assessment: 1.?Tinea unguium - B35.1?2.? Atherosclerosis of red devil artery of both lower extremities, with unspecified presence of clinical manifestation - I70.203 (Primary)?3.?Pain in right toe(s) - M79.674?4.?Pain in left toe(s) - M79.675?5.?Subungual hematoma of left foot, initial encounter - S90.222A, Acute problem, Uncomplicated (3)? Plan: * Treatment: 2.?Tinea unguium?Procedure: 23623-ZRGHSZB NAIL, 6 OR MORE * Procedures:?Debride Nail 6-10:?Nail debridement?Nail debridement procedure description should have stated: Performance of this nail treatment by a nonprofessional would put this patients foot and overall health at risk. Therefore, nail debridement was performed extensively to reduce/remove overall nail length, girth, thickness, subungual debris, and necrotic tissue, by manual and/or electrical means through the use of a nail nipper and/or dremel-type thread grinder, to a more viable healthy nail plate or bed tissue 6-10. Silver nitrate used for any petechial bleeding as necessary. Definitive antifungal treatment options have been reviewed and discussed with the patient. The patient chooses, no pharmaceutical tx - 48062.?Keratoma Treatment:?Parring or Cutting of Benign Hyperkeratotic Lesion(s)?(-57) More than 4 Lesions - The Benign hyperkeratotic lesions, as described above were pared, and/or cut utilizing a sterile 15 blade, tissue nippers, and/or dremel - 63903 , Q8.? * Procedure Codes:?60541 TRIM SKIN LESIONS, OVER 4, Modifiers: XS , [id number] DEBRIDE NAIL, 6 OR MORE, Modifiers: XS * Preventive Medicine:? ??Counseling:?Discussion:?-13: Office or other outpatient visit for the evaluation and management of an established patient, which required a medically appropriate history and/or examination and LOW level of DECISION MAKING for: 1 STABLE ACUTE UNCOMPLICATED PROBLEM, 2 OR MORE MINOR PROBLEMS, OR 1 STABLE CHRONIC PROBLEM, THAT POSE(S) A LOW RISK FOR MORBIDITY/MORTALITY. The visit on the day of the encounter encompassed interpreting the data and educating the patient as to the nature of their condition, treatment options available according to their individual PMH, meds, allergies, and overall health/living conditions, as well as any potential risks or complications that may occur from a failure to adhere to, and participate in, the recommended course of therapy. The discussion included a complete verbal, and/or written explanation of the examination results, any x-rays taken, the proposed diagnosis, and outline of the treatment plan. A schedule for future care needs was also explained. The patient verbalized an understanding of the instructions at this time and agreed to be an active participant in their treatment. If the patient should think of any questions or concerns after the visit, I have encouraged the patient to call the office.?Treatment:?SUBUNGUAL HEMATOMA - Due to this patients medical history, the plan is to treat their pathology through conservative and restorative nonsurgical means to help alleviate the patients symptomatology by utilizing some or all of the standard podiatric medical care. Recommendations were made for warm epsom salt water soaks for 20 min per day and monitor the nail or toe for any signs of infection (purulent drainage, increasing redness, red lines or streaks ascending the toe, or any increase in pain). If the patient does notice any of the preceding they are to notify the office immediately. The patient was advised of the distinct possibilty for nail auto-avulsion.? * Follow Up:?prn * Images: * Sign off status: Completed true * Provider:?Suman Castaneda DPM Date:?2023 Generated for Gisselle reed/Chad/Yariel on:?04/14/2024 01:39 AM EST History and Physical Notes * HPI (History of Present Illness) Category Sub-Category Detail Notes Category Not es Painful Nails Duration: States Possible Date Of Injury - 02/22/24 At Risk footcare Pt States Last PCP Visit: Date: 08/26/2023 States has an appt with PCP soon - first week in Nov Examination Category Sub-Category Detail Notes Category Not es Dermatologic SKIN FINDINGS: Skin exam reveal s Keratotic lesion(s) located at, Dorsal, PIPJ, T8, SUB MTH (s), 1, B/L , SUB MTH (s), 5, B/L, Heel(s), B/L Vascular DP PULSES(B): 0/4, B/L PT PULSES(B): 1/4, B/L CAPILLARY FILL TIME: delayed, all digits , B/L TEMPERTURE GRADIENT(C): decreased, cool to cool, proximal to distal, B/L TROPHIC CONDITION-TEXTURE/ELASTICITY/TURGOR/HAIR GROWTH(B): decreased, with sparse to absent hair gr owth, B/L EDEMA(C): absent, B/L CLAUDICATION(C): denies, B/L REST PAIN: denies, B/L PIGMENTATION: mottled, B/L Nails NAILS are: Elongated, overg rown, dystrophic, lytic, greater than 3mm thick, discolored and friable with crumbly malodorous subungual debris, with pain on palpation, TA, T2, T3, T4, T5, T6, T8, T9 , There is evidence of pain on palpation, and an area of SUBUNGUAL HEMORRHAGIC fluid with a pre-operative size measuring approximately ( 4-5 ) mm square, TA
--- OUTSIDE RECORDS SUMMARY | 2024-04-14 01:40 | XMS_ITS | Patient Health Record ---
Author Organization [facility] Address [address] [facility] [place] [address] Care Team Providers Care Azure Developer Name Role Phone Fatuma SHARP, Paula Primary Care Provider Unavailab Suman Hightower Unavailable [phone] Allergies Allergen (clinical drug ingredient) Drug/Non Drug Allergy documented on EMR Reaction Allergy Type Onset Date Status ibuprofen Advil Unknown Drug Allergy Active naproxen Aleve Unknown Drug Allergy Active codeine Codeine Unknown Drug Allergy Active Reason For Referral No Information Medications Medication SIG (Take, Route, Frequency, Duration) Notes Start Date End Date Status amLODIPine Besylate 5 MG 1 tablet Orally Once a day for 30 days am Not-Taking Biotin Active Doxycycline Hyclate 100 MG 1 capsule Orally Once a day for 10 day(s) Antibiotic for 10 days Active Doxycycline 10 days Not-Taki ng Estradiol 0.1 MG/GM as directed Vaginal Active Ammonium Lactate 12 % 1 application to affected area Externally to feet Twice a day for 30 days Active Multivitamin Active Biotin Active amLODIPine Besylate 2.5 MG 1 tablet Orally Once a day for 30 day(s) pm Not-Taking PreserVision AREDS A ctive Zinc Active Vitamin C Active Vitamin D3 Active Losartan Potassium 50 MG 1 tablet Orally Once a day twice a day Active Probiotic Not-Taking PreserVision AREDS A ctive Immunizations Vaccine Route Administration Date Status Comme nts COVID-19 Pfizer BioNTech Vaccine Unknown 02/02/2022 Administered 2020,2020 2020 unsure dates Social History Tobacco Use: Social History Observation Description Date Details (start date - stop date) Former Smoker NA - NA Tobacco Use/Smoking Question Answer Notes Are you a: former smoker Additional Findings: Tobacco Non-User Current no n-smoker Alcohol Screen Question Answer Notes Did you have a drink contain ing alcohol in the past year? Yes How often did you have a dri nk containing alcohol in the past year? Monthly or less (1 point) Points 1 Interpretation Negative Tobacco use other than smoking: Question Answer Notes Are you an other tobacco user? No Problems Problem Type SNOMED Code ICD Code Onset Dates Problem Status W/U Status Risk Notes Problem Atherosclerosis of three affiliated arteries of the extremities ([id number]) Atherosclerosis of three affiliated artery of both lower extremities, with unspecified presence of clinical manifestation (I70.203) Active confirmed Vital Signs Height 64.17 in 02/27/2024 Weight 108 lbs 02/27/2024 BMI 18.44 kg/m2 02/27/2024 Procedures Procedure Date Ordered Date Performed Result Body Sit e 76938-DYTWUUE NAIL, 6 OR MORE 08/26/2023 N/A 50584-KBMV SKIN LESIONS, OVER 4 08/26/2023 N/A 47295-ETVAYTU NAIL, 6 OR MORE 02/27/2024 N/A 99451-NNHR SKIN LESIONS, OVER 4 02/27/2024 N/A Encounters Encounter Location Date Provider Diagnosis [address] [address] 08/26/2023 Suman Castaneda Atherosclerosis of three affiliated artery of both lower extremities, with unspecified presence of clinical manifestation I70.203 ; Tinea unguium B35.1 ; Pain in right toe(s) M79.674 and Pain in left toe(s) M79.[address] [address] 02/27/2024 Suman Castaneda Atherosclerosis of three affiliated artery of both lower extremities, with unspecified presence of clinical manifestation I70.203 ; Tinea unguium B35.1 ; Pain in right toe(s) M79.674 ; Pain in left toe(s) M79.675 and Subungual hematoma of left foot, initial encounter S90.222A [address] [address] 06/16/2023 Suman Castaneda [address] [address] 08/26/2023 Suman Castaneda [facility] [address] [address] 12/26/2023 Suman Castaneda Assessments Encounter Date Diagnosis (ICD Code) Assessment Notes Treatment Notes Treatment Clinical Notes Section Notes 08/26/2023 Tinea unguium (ICD-10 - B35.1) 08/26/2023 Atherosclerosis of three affiliated artery of both lower extremities, with unspecified presence of clinical manifestation (ICD-10 - I70.203) 02/27/2024 Tinea unguium (ICD-10 - B35.1) 02/27/2024 Atherosclerosis of three affiliated artery of both lower extremities, with unspecified presence of clinical manifestation (ICD-10 - I70.203) 02/27/2024 Pain in right toe(s) (ICD-10 - M79.674) 08/26/2023 Pain in right toe(s) (ICD-10 - M79.674) 08/26/2023 Pain in left toe(s) (ICD-10 - M79.675) 02/27/2024 Pain in left toe(s) (ICD-10 - M79.675) 02/27/2024 Subungual hematoma of left foot, initial encounter (ICD-10 - S90.222A) 08/26/2023 Other 02/27/2024 Other Plan Of Treatment Pending Test Test Name Order Date X ray : Foot, right 3V 07/05/2022 24252-NMMTKUM NAIL, 6 OR MORE 02/18/2023 17406-ITDVIZZ NAIL, 6 OR MORE 07/19/2022 88247-QIEVFUX NAIL, 6 OR MORE 10/11/2022 62968-WDWNYDT NAIL, 6 OR MORE 08/26/2023 24942-ODIPQZQ NAIL, 6 OR MORE 02/27/2024 94153- Debride <25 sq cm 10/11/2022 29746- Debride <25 sq cm 07/19/2022 87061 I&D ABSCESS- SIMPLE,SINGLE 023 07855-KOPY SKIN LESIONS, OVER 4 02/27/20 24 55269-HRNO SKIN LESIONS, OVER 4 08/26/19 24 31327-JCPY SKIN LESIONS, OVER 4 07/20/19 96204-FNRW SKIN LESIONS, OVER 4 02/19/20 35688-KPZF SKIN LESIONS, OVER 4 10/12/19 Next Appt Details Provider Name:Suman Castaneda , 06/29/2024 09:00:00 AM, [address] [facility], [place], [address], Insurance Providers Payer Name Payer Address Payer Phone Subscriber Number Group Number Insured Name Patient Relationship to Insured Coverage Start Date Coverage End Date Medicare National [employer] Sv [employer] [address] [place] [address] [id number] Wendi Lay Self - patient is the insured [employer] [address] [place] [address] [id number] Wendi Lay Self - patient is the insured Medical (General) History Medical History History ICD Code Hypertension Lymphoma Surgical History Surgery Date(Month/Year) root canal- broke her crowns has to get them replaced Melanoma removal - Right leg - delayed h ealing 2023 Hospitalization History Reason Date(Month/Year) Fell while jogging - injury to face: needing ER visit- sutures to her lip/mouth 04/2022
--- OUTSIDE RECORDS SUMMARY | 2024-04-14 01:40 | XMS_ITS ---
Author Organization [facility] Address [address] [place] [address] Care Team Providers Care Search Engine Marketing Manager Name Role Phone Paula Burris MD Primary Care Provider Unavailab Suman Hightower Unavailable [phone] REASON FOR VISIT Reschedule Encounters Encounter Location Date Provider Diagnosis [address] [address] 12/26/2023 Suman Castaneda Plan Of Treatment Next Appt Details Provider Name:Suman Castaneda , 06/29/2024 09:00:00 AM, [address] [place], [address], Progress Notes * Wendi LAYDOB: [birth year] (83 yo F)Acc No.[id number]:12/26/2023 Patient:?Wendi Lay :1940???Age:83 Y???Sex:Female Address:[address] [place] [address], [address] * true * Date:? Generated for Printi ng/Fawalkerg/eTransmitting on:?04/14/2024 01:40 AM EST
--- OUTSIDE RECORDS SUMMARY | 2024-04-14 01:40 | XMS_ITS | Continuity of Care Document ---
Author Organization [place] - [facility], [facility] Address [address] [place] [address] Care Team Providers Care Apparel Pattern Maker Name Role Phone GRECIA SAGASTUME Primary Care Provider Assessment Encounter Date Assessment Date Assessment LastModified by Organization Details LastModified Time 04/09/2024 04/09/2024 84-year-old female presents for cerumen removal. Cerumen impaction removed bilaterally. Bilateral tympanic membranes are intact with well aerated middle ear spaces. She will follow-up in 4 months for routine debridement, or sooner with any concerns. [email or web address] Not available 04/09/2024 11:35:04 Plan of Treatment [...] Recorded Time Impacted cerumen of bilateral ears [id number] 97661 Active 2021 Impacted cerumen, bilateral ; Note: Date Diagnosed : 01/17/2022 4:33 PM (H61.23) Not Available [facility] 02:51:38 Abrasion of skin of left ear [id number] 280890 Active 2021 Abrasion of left ear, initial encounter ; Note: Date Diagnosed : 01/17/2022 5:11 PM (S00.412A ) Not Available [facility] 4 02:51:37 Sensorine ural hearing loss of bilateral ears 237729375 Active 2021 Sensorine ural hearing loss, bilateral ; Note: Date Diagnosed : 01/17/2022 4:42 PM (H90.3) Not Available [facility] 4 02:51:35 Problem Notes None recorded. Procedures Surgical History Date Name Laterality Status Provider Name and Address Organization Details Recorded Time 4 Cerumen removal without microscope bilat completed CATHRYN ORTIZ PA-C [address] [place] [address], [phone], [facility] 04/09/2024 11:18:47 Imaging Results None recorded. Procedure Notes None recorded. Medical Equipment None Reported. Allergies Allergen ID Allergen Name Allergen Category Reaction Reaction Severity Criticality Documentation Date Start Date Code Code System Note Provider Name and Address Organization Details Recorded Time 637273 naproxen medicatio n other Not available Not available 09/16/2023 7258 RxNorm React ion: Unkno wn; Not Available [facility] 4 01:14:45 594736 codeine medicatio n other Not available Not available 09/16/2023 2670 RxNorm React ion: Unkno wn; Not Available [facility] 4 01:14:46 Medications Name Sig Start Date Stop Date Status Note LastModified by Organization Details LastModified Time sodium chloride 5 % eye drops active Medicati on ID: [id number] B rand Name: sodium chloride Send Method: E-Prescr ibed Sub s Allowed: subs [place] Speci al Instruct ion: INSTILL 1 DROP IN BOTH EYES THREE TO FOUR TIMES A DAY Medi cationGe nericNam e: sodium chloride Not Available Not Available Not Available amlodipin e 2.5 mg tablet 04/09 completed Medicati on ID: [id number] B rand Name: amlodipi ne Send Method: [...] Diagnosis/Indication Diagnosis SNOMED-CT Code Diagnosis ICD10 Code 40878 MAX TESFAYE MD [facility]NT[facility] [address] [address] 04/09/2024 11:13:37 04/09/2024 11:56:17 Impacted cerumen of bilateral ears [id number] 459061 H61.23 Health Concerns Section Related Observation LastModified by Organization Detai ls LastModified Time None Recorded Concern Status LastModified by Organization Details LastModified Time None Recorded Payers Encounter Date Sequence Insurance Name Policy Number Policy Childress Covered Member ID Childress Member ID Guarantor Name 04/09/2024 2 [facility] INDEMNITY PLAN - [facility] [id number] Wendi Lay [id number] Wendi Lay 04/09/2024 1 MEDICARE [place]: [employer] Wendi Lay [id number] Wendi Lay Notes Date Note Type Note Provider Name and Address Organization Details Recorded Time 04/09/2024 text/html 84-year-old female presents for cerumen removal. She is followed by Anne in audiology. No concerns today. MAX TESFAYE MD [address] [place] [address], [phone], [facility] - [facility] 04/09/2024 17:07:33 OBGyn Episode No OBEpisode recorded.
[2024-05-18 15:02] VITALS: BMI 20.1
--- OUTSIDE RECORDS SUMMARY | 2024-05-24 08:35 | XMS_ITS | Continuity of Care Document ---
Author Organization [facility] Address [address] [place] [address]- Care Team Providers Care Director E Learning Name Role Phone Fatuma SHARP, Paula Primary Care Physician [place] [facility] [place](s): 05/03/24 - 05/10/24 [facility] [address], [place] [address] Attending Physician: Dyllan Malagon MD Referring Physician: Seven SHARP, Samuel Larkin Encounter Type: Office Visit Allergies, Adverse Reactions, [...] 07/08/22 Recorded Zoster Vaccine Live 03/19/22 Recorded [id number] bivalent booster vax 03/19/22 Recorded SARS-CoV-2 (COVID-19) [...] Pneumococcal Vaccine (oldterm) 02/11/06 Given 1Result Comment: [facility] [phone] 2Result Comment: [02/19/2017] done at [facility] form received HIGH DOSE 3Result Comment: [03/04/2016] DONE AT [facility] FORM RECEIVED HIGH DOSE 4Result Comment: [01/29/2013] DONE AT [facility] FORM RECEIVED 5Admin Note: [facility] 6Admin Note: per pt receive ated [facility] 7Admin Note: given at [facility], all info from form 8Admin Note: [facility] 9Admin Note: OFFERED 10Result Comment: [05/02/2016] done at pharmacy... per pt 11Result Comment: [02/28/2015] high dose 12Admin Note: PER [facility] FORM Medications Biotin 0 Refills, Maintenance, 04/24/15 10:30:31 AM EST Start Date: 04/24/15 Status: Ordered Repeat number: 1 losartan 25 mg oral tablet 25 mg, 1, tablet, By Mouth, 2 times a day, # 180 tablet, Refills 1, Tot. Refills 1, Maintenance, 03/18/24 10:29:00 AM EST, Route to Pharmacy Electronically, [facility]/pharmacy #[id number], Partial fill upon patient request if [...] of skin Confirmed Active Lymphoma Confirmed Active Vital Signs Most recent to oldest [Reference Range]: 1 Height 163.00 cm (05/03/24 10:19 AM) Weight 53.5 kg (05/03/24 10:19 AM) Oxygen Saturation [94-100 %] 99 % (05/03/24 10:19 AM) Pulse Rate [55-90 bpm] 97 bpm *H* (05/03/24 10:19 AM) Body Mass Index [18.5-24.99 kg/m2] 20.14 kg/m2 (05/03/24 10:19 AM) Blood Pressure [90-138/55-84 mm Hg] 140/ 78mm Hg *H* (05/03/24 10:19 AM) Respiratory Rate [16-30 br/min] 15 br/mi n *L* (05/03/24 10:19 AM) Mode of Delivery (Oxygen) Room air (05/03/24 10:19 AM) Blood pressure sites Arm, right (05/03/24 10:19 AM) Weight Obtained Via Standing scale (05/03/24 10:19 AM) Social History Social History Type Response Smoking Status Former smoker; Type: Cigarettes; Other: quit at age 21; Number of years: 3; entered on: 04/24/15 Sex Sex Representation Female (finding) Patient Care team information Care Team Personnel Name: Zara Jara Position: [facility] Onco RN Member Role: Primary Care Nurse Name: Paula Burris MD Position: [facility] Physician - Primary Care Member Role: PCP Address: [address] [place] [address] Adult and Pediatric Medicine [address] Telecom: Name: Michell Olvera Position: [facility] [place] Collection Officer Member Role: Spine Surgeon Care Team Related Persons Name: HIWOT MARTÍNEZ Name: EULALIO STUBBS Name: SHEA LANDA Insurance Providers Guarantor name: RODO MARTÍNEZ Health Plan Information #: 2 Payer: [facility] Member Number: [id number] Policy Number: NA Group Number: [id number] Health Plan Information #: 1 Payer: MEDICARE PART B OUTPT Member Number: [id number] Policy Number: NA Group Number: [id number]
--- OUTSIDE RECORDS SUMMARY | 2024-05-24 08:35 | XMS_ITS | Continuity of Care Document ---
Author Organization [facility] Address [address] [place] [address]- Care Team Providers Care Power Cutting Machine Operator Name Role Phone Fatuma SHARP, Paula Primary Care Physician [phone] [place] [facility] [place]29[place]24 - 04/28/24 [facility] [address] [place], [place] [address] Encounter Type: Triage Allergies, Adverse Reactions, Alerts Substance Criticality Severity [...] 02/17/12 Eddie rded influenza virus vaccine, inactivated 12/31/10 Gi michael influenza virus vaccine, inactivated 7 01/22/10 Gi michael zoster vaccine, inactivated 07/08/22 Recorded Zoster Vaccine Live 03/19/22 Recorded [id number] bivalent booster vax 03/19/22 Recorded SARS-CoV-2 (COVID-19) [...] Pneumococcal Vaccine (oldterm) 02/11/06 Given 1Result Comment: [facility] [phone] 2Result Comment: [02/19/2017] done at [facility] form received HIGH DOSE 3Result Comment: [03/04/2016] DONE AT [facility] FORM RECEIVED HIGH DOSE 4Result Comment: [01/29/2013] DONE AT [facility] FORM RECEIVED 5Admin Note: [facility] 6Admin Note: per pt receive ated [facility] 7Admin Note: given at [facility], all info from form 8Admin Note: [facility] 9Admin Note: OFFERED 10Result Comment: [05/02/2016] done at pharmacy... per pt 11Result Comment: [02/28/2015] high dose 12Admin Note: PER [facility] FORM Medications Biotin 0 Refills, Maintenance, 04/24/15 10:30:31 AM EST Start Date: 04/24/15 Status: Ordered Repeat number: 1 Estrace Vaginal Cream 0.1 mg/g = 1 Gm, Vaginally, Daily at bedtime, Use nightly at bedtime for 2 weeks, then use twice a week at bedtime, # 42.5 Gm, 2 Refills, Maintenance, 09/22/23 10:23:00 AM EDT, [facility]/pharmacy #[id number], Partial fillupon patient request if the [...] 1 Refills, Maintenance, 03/18/24 10:29:00 AM EST, [facility]/pharmacy #[id number], 163, cm, 03/18/24 10:08:00 EST, Height, 51.3, kg, 09/22/23 10:11:00 EDT, Dry Weight Start Date: 03/18/24 Status: Ordered Quantity: 90.0 Unit: tablet Repeat number: 2 losartan 25 mg oral tablet 25 mg, 1, tablet, By Mouth, 2 times a day, # 180 tablet, Refills 1, Tot. Refills 1, Maintenance, 03/18/24 10:29:00 AM EST, Route to Pharmacy Electronically, [facility]/pharmacy #[id number], Partial fill upon patient request if [...] Most recent to oldest [Reference Range]: 1 Blood Pressure [90-138/55-84 mm Hg] 122/ 66mm Hg (04/06/24 10:09 AM) Social History Social History Type Response Smoking Status Former smoker; Type: Cigarettes; Other: quit at age 21; Number of years: 3; entered on: 04/24/15 Sex Sex Representation Female (finding) Patient Care team information Care Team Personnel Name: Zara Jara Position: [facility] Onco RN Member Role: Primary Care Nurse Name: Paula Burris MD Position: [facility] Physician - Primary Care Member Role: PCP Address: [address] [place] [address] Adult and Pediatric Medicine [address] Telecom: Name: Michell Olvera Position: [facility] [place] Humane Officer Member Role: Tool Hardener Care Team Related Persons Name: HIWOT MARTÍNEZ Name: EULALIO STUBBS Name: SHEA LANDA Insurance Providers Guarantor name: RODO MARTÍNEZ Health Plan Information #: 1 Payer: MEDICARE PART B OUTPT Member Number: NA Policy Number: NA Group Number: NA Health Plan Information #: 2 Payer: [facility] INDEMN Member Number: NA Policy Number: NA Group Number: NA
--- OUTSIDE RECORDS SUMMARY | 2024-05-24 08:36 | XMS_ITS | Continuity of Care Document ---
Author Organization [place] - [facility], ENT[facility] Address [address] [place] [address] Care Team Providers Care Pattern Designer Name Role Phone GRECIA SAGASTUME Primary Care Provider Assessment Encounter Date Assessment Date Assessment LastModified by Organization Details LastModified Time 04/09/2024 04/09/2024 84-year-old female presents for cerumen removal. Cerumen impaction removed bilaterally. Bilateral tympanic membranes are intact with well aerated middle ear spaces. She will follow-up in 4 months for routine debridement, or sooner with any concerns. [email or web address] Not available 04/09/2024 11:35:04 Plan of Treatment [...] Recorded Time Impacted cerumen of bilateral ears 25919059728 01687 Active 2021 Impacted cerumen, bilateral ; Note: Date Diagnosed : 01/17/2022 4:33 PM (H61.23) Not Available [facility] 02:51:38 Abrasion of skin of left ear 39546404612 123292 Active 2021 Abrasion of left ear, initial encounter ; Note: Date Diagnosed : 01/17/2022 5:11 PM (S00.412A ) Not Available [facility] 4 02:51:37 Sensorine ural hearing loss of bilateral ears 324699381 Active 2021 Sensorine ural hearing loss, bilateral ; Note: Date Diagnosed : 01/17/2022 4:42 PM (H90.3) Not Available [facility] 4 02:51:35 Problem Notes None recorded. Procedures Surgical History Date Name Laterality Status Provider Name and Address Organization Details Recorded Time 4 Cerumen removal without microscope bilat completed CATHRYN ORTIZ PA-C [address] [place] [address], [phone], [facility] 04/09/2024 11:18:47 Imaging Results None recorded. Procedure Notes None recorded. Medical Equipment None Reported. Allergies Allergen ID Allergen Name Allergen Category Reaction Reaction Severity Criticality Documentation Date Start Date Code Code System Note Provider Name and Address Organization Details Recorded Time 860560 naproxen medicatio n other Not available Not available 09/16/2023 7258 RxNorm React ion: Unkno wn; Not Available [facility] 4 01:14:45 594348 codeine medicatio n other Not available Not available 09/16/2023 2670 RxNorm React ion: Unkno wn; Not Available [facility] 4 01:14:46 Medications Name Sig Start Date Stop Date Status Note LastModified by Organization Details LastModified Time sodium chloride 5 % eye drops active Medicati on ID: [id number] B rand Name: sodium chloride Send Method: E-Prescr ibed Sub s Allowed: subs [place] Speci al Instruct ion: INSTILL 1 DROP IN BOTH EYES THREE TO FOUR TIMES A DAY Medi cationGe nericNam e: sodium chloride Not Available Not Available Not Available amlodipin e 2.5 mg tablet 04/09 completed Medicati on ID: [id number] B rand Name: amlodipi ne Send Method: [...] Diagnosis/Indication Diagnosis SNOMED-CT Code Diagnosis ICD10 Code Diagnosis Note 52448 MAX TESFAYE MD [facility] of [address] [address] 04/09/2024 11:13:37 04/09/2024 11:56:17 Impacted cerumen of bilateral ears 9932709859 871893 H61.23 Health Concerns Section Related Observation LastModified by Organization Detai ls LastModified Time None Recorded Concern Status LastModified by Organization Details LastModified Time None Recorded Payers Encounter Date Sequence Insurance Name Policy Number Policy Childress Covered Member ID Childress Member ID Guarantor Name 04/09/2024 2 [facility] INDEMNITY PLAN [facility] [id number] Wendi Lay [id number] Wendi Lay 04/09/2024 1 MEDICARE [place] [employer] Wendi Lay [id number] Wendi Lay Notes Date Note Type Note Provider Name and Address Organization Details Recorded Time 04/09/2024 text/html 84-year-old female presents for cerumen removal. She is followed by Anne in audiology. No concerns today. MAX TESFAYE MD [address] [place] [address], [phone], [facility] - [facility] 04/09/2024 17:07:33 OBGyn Episode No OBEpisode recorded.
--- OUTSIDE RECORDS SUMMARY | 2024-05-24 08:36 | XMS_ITS | Data Portability ---
Author Organization [place] - [facility], Allergy Address [address] [address] Care Team Providers Care Photographic Aide Name Role Phone GRECIA SAGASTUME Primary Care Provider Assessment Encounter Date Assessment Date Assessment LastModified by Organization Details LastModified Time 04/09/2024 04/09/2024 84-year-old female presents for cerumen removal. Cerumen impaction removed bilaterally. Bilateral tympanic membranes are intact with well aerated middle ear spaces. She will follow-up in 4 months for routine debridement, or sooner with any concerns. [email or web address] Not available 04/09/2024 11:35:04 Plan of Treatment [...] Recorded Time Impacted cerumen of bilateral ears 01434909048 68300 Active 2021 Impacted cerumen, bilateral ; Note: Date Diagnosed : 01/17/2022 4:33 PM (H61.23) Not Available [facility] 02:51:38 Abrasion of skin of left ear 38133187725 831637 Active 2021 Abrasion of left ear, initial encounter ; Note: Date Diagnosed : 01/17/2022 5:11 PM (S00.412A ) Not Available [facility] 4 02:51:37 Sensorine ural hearing loss of bilateral ears 534412540 Active 2021 Sensorine ural hearing loss, bilateral ; Note: Date Diagnosed : 01/17/2022 4:42 PM (H90.3) Not Available [facility] 4 02:51:35 Problem Notes None recorded. Procedures Surgical History Date Name Laterality Status Provider Name and Address Organization Details Recorded Time 4 Cerumen removal without microscope bilat completed CATHRYN ORTIZ PA-C [address] [place] [address],[address], [address], [facility] - [facility] 04/09/2024 11:18:47 Imaging Results None recorded. Procedure Notes None recorded. Medical Equipment None Reported. Allergies Allergen ID Allergen Name Allergen Category Reaction Reaction Severity Criticality Documentation Date Start Date Code Code System Note Provider Name and Address Organization Details Recorded Time 637823 naproxen medicatio n other Not available Not available 09/16/2023 7258 RxNorm React ion: Unkno wn; Not Available [facility] 4 01:14:45 836225 codeine medicatio n other Not available Not available 09/16/2023 2670 RxNorm React ion: Unkno wn; Not Available [facility] 4 01:14:46 Medications Name Sig Start Date Stop Date Status Note LastModified by Organization Details LastModified Time sodium chloride 5 % eye drops active Medicati on ID: [id number] B rand Name: sodium chloride Send Method: E-Prescr ibed Sub s Allowed: subs OK Speci al Instruct ion: INSTILL 1 DROP IN BOTH EYES THREE TO FOUR TIMES A DAY Medi cationGe nericNam e: sodium chloride Not Available Not Available Not Available amlodipin e 2.5 mg tablet 04/09 completed Medicati on ID: 166344 B rand Name: amlodipi ne Send Method: [...] SNOMED-CT Code Diagnosis ICD10 Code Diagnosis Note 27402 MAX TESFAYE MD [facility] of [address] [address] 04/09/2024 11:13:37 04/09/2024 11:56:17 Impacted cerumen of bilateral ears [id number] 434877 H61.23 Health Concerns Section Related Observation LastModified by Organization Detai ls LastModified Time None Recorded Concern Status LastModified by Organization Details LastModified Time None Recorded Advance Directives Directive None Recorded Payers Encounter Date Sequence Insurance Name Policy Number Policy Childress Covered Member ID Childress Member ID Guarantor Name 04/09/2024 2 [facility] INDEMNITY PLAN - [facility] [id number] Wendi Lay [id number] Wendi Lay 04/09/2024 1 MEDICARE B-[place] [employer] Wendi Lay [id number] Wendi Lay Notes Date Note Type Note Provider Name and Address Organization Details Recorded Time 04/09/2024 text/html 84-year-old female presents for cerumen removal. She is followed by Anne in audiology. No concerns today. MAX TESFAYE MD [address] [place] [address], [phone], [facility] - [facility] 04/09/2024 17:07:33 OBGyn Episode No OBEpisode recorded.
[2024-05-24 08:40] VITALS: BP 177/69; PULSE 83; RESP 20; TEMP 36.9; O2SAT 97
[2024-05-24] MEDS: Cyclopentolate 1 % Ophth Sol 2 ML DRPBTL 1 DROP EYE-LEFT ×3 (08:55→09:00)
[2024-05-24] MEDS: Lactated Ringers 500 ML 20 ML IVCONT (08:55)
[2024-05-24] MEDS: Ketorolac Tromethamine 0.5% Op 10 ML DROPS 1 DROP EYE-LEFT ×3 (08:55→09:00)
[2024-05-24] MEDS: Tropicamide 1 % Ophth Sol 3 ML BTL 1 DROP EYE-LEFT ×3 (08:55→09:01)
[2024-05-24] MEDS: Tetracaine HCl/PF 0.5% Oph Sol 4 ML DROPS 1 DROP EYE-LEFT (08:56)
[2024-05-24] MEDS: Phenylephrine HCL 2.5% Oph SoL 2 ML BOTTLE 1 DROP EYE-LEFT ×3 (08:59→09:00)
--- NOTE | 2024-05-24 09:41 | P.CONAN_ITS ---
HPI - Anesthesia Eval Consult details Narrative: cataract PMFSH Past Medical History Medical History Exercises daily Anesthesia complication Acute sinus infection Skin cancer Lymphoma HTN (hypertension) Family History Family history of problems with anesthesia: No Surgical History Surgical History History of eye surgery Hx of cataract surgery History of total abdominal hysterectomy and bilateral salpingo-oophorectomy H/O colonoscopy History of Problems with Anesthesia: No Social History Social History Are you a primary healthcare business analyst to a significant other at home: No Do you presently have visiting nurse or other home services: No Patient Tobacco Use Status: Former Tobacco user Tobacco use type: Cigarette Use of substances other than those prescribed or required for medical reasons: No Have you been hit, kicked, punched, or otherwise hurt by someone within the past year? If so, by whom?: No Spiritual Healthcare Practices: none Amish Healthcare Practices: Pentecostal Cultural Healthcare Practices: none Are you DNR?: No Advance Directives Information Provided: Yes (as above noted) Advance Directives on File: No Recently lost weight without trying: No Eating poorly because of decreased appetite: No Nutrition Risks: Surgical patient >75years FDLMP: n/a Poor oral hygiene: No (dental implants) Meds Allergies Allergy/AdvReac Type Severity Reaction Status Date / Time ibuprofen [From Motrin] Allergy Severe Seizure Verified 05/18/24 14:36 naproxen [From Aleve] Allergy Severe Seizure Verified 05/18/24 14:37 codeine [CODEINE] Allergy Intermediate NAUSEA & Verified 05/24/24 08:52 VOMITING Active Medications: Current Medications Lactated Ringer's (Lr) 500 mls @ 20 mls/hr IVCONT .Q24H YURIDIA Last Admin: 05/24/24 08:55 Dose: 20 mls/hr Povidone Iodine (Povidone Iodine 5 % Ophth Soln 30 Ml Bottle) 1 appl EYE-LEFT PREOP PRN PRN Reason: Pre-Op Surgical Implant Prophy Home Medications ?Medication ?Instructions ?Recorded ?Confirmed ?Last Taken ?Type losartan 25 mg tablet 25 mg PO BID 05/18/24 05/18/24 Unknown History vit C 250 mg-vit E 90 mg-zinc 40 1 tab PO BID 05/18/24 05/18/24 Unknown History mg-copper 1 [id number] capsule (PreserVision AREDS-2) Exam Height,Weight and Vital Signs: Height 5 ft 4.17 in Weight 53.5 kg Last Vital Signs Temp 98.5 F 05/24/24 08:40 Pulse 83 05/24/24 08:40 Resp 20 05/24/24 08:40 BP 177/69 H 05/24/24 08:40 Pulse Ox 97 05/24/24 08:40 O2 Del Method Room Air 05/24/24 08:40 Airway Mallampati Class: II TM Dist: >3cm Neck ROM: Limited Heart: rrr Lungs: cta Assessment and Plan Assessment Anesthesia Assessment: Anesthesia Plan Discussed Final Anesthetic Review Family History of Problems with Anesthesia: No History of Problems with Anesthesia: No NPO: Yes ASA Class: II Final Preanesthetic Review: No Changes in Pt Med Stat, Meds/Allgs Chart Reviewed, Consent Obtained/Reviewed and Anes Risks/Benef Reviewed Patient Risk: Low Procedure Risk: Low Anesthetic Plan Anesthetic Plan: MAC: Disposition: Standard PACU
--- NOTE | 2024-05-24 10:02 | MHC.SHP ---
Pre-Procedural Eval Section A - 24 Hr Update-Section A only Date of Service: 05/24/24 The patient is an INPATIENT: No Changes since office visit: No Cold of Flu in the past 2 weeks, No New Medical Problems, No Changes in Medication and No Patient answered all questions The patient has been examined within 24 hours of the surgical procedure. The History & Physical has been completed within 30 days and I have reviewed it.: Yes Section B - Complete if H&P > 30 days Chief Complaint: Displacement of intraocular lens, subsequent Allergies: Allergies Allergy/AdvReac Type Severity Reaction Status Date / Time ibuprofen [From Motrin] Allergy Severe Seizure Verified 05/18/24 14:36 naproxen [From Aleve] Allergy Severe Seizure Verified 05/18/24 14:37 codeine [CODEINE] Allergy Intermediate NAUSEA & Verified 05/24/24 08:52 VOMITING Plan Diagnosis/Plan: Unchanged I have reviewed the history and physical and performed a pertinent physical examination on my patient. No changes have occurred unless specified. Time Spent With Patient Time: Total time managing care of this patient today ____ minutes.
[2024-05-24 10:24] VITALS: BP 181/98; PULSE 74; RESP 18; TEMP 36.8; O2SAT 99
[2024-05-24 10:39] VITALS: BP 173/74; PULSE 66; RESP 18; TEMP 36.4; O2SAT 97
--- NOTE | 2024-05-24 11:18 | OP_ITS ---
DATE OF SERVICE: 05/24/2024 SURGEON: Samuel Amezcua MD PREOPERATIVE DIAGNOSIS: POSTOPERATIVE DIAGNOSIS: PROCEDURE PERFORMED: ESTIMATED BLOOD LOSS: COMPLICATIONS: ANESTHESIA: MAC. ASSISTANTS: SPECIMENS: INDICATION FOR SURGERY: Dislocation of the intraocular lens of the left eye. DESCRIPTION OF PROCEDURE: After obtaining informed consent, the patient was brought to the operating room suite and placed in supine position. After being placed under MAC, the left eye were prepped and draped in usual sterile fashion. The operating room microscope was positioned over the left eye and a lid speculum was placed. Subconjunctival dose of 0.15 mL of Kenalog was given. This was followed by creation of paracentesis and a clear corneal incision utilizing a keratome into the anterior chamber. The haptics were then grasped with capsulotomy forceps and rotated 360 degrees following the haptics into the anterior chamber. The IOL was positioned centrally and haptic placed into the sulcus. The lens was positioned centrally. Vigamox 0.1 mL was then given intracamerally. The lid speculum was removed. The patient tolerated the procedure well and will be seen in followup. MD BIBI Daniel/MODL / [id number] MTDD
== END 2024-05-24 11:00 | disposition home or self-care (01) ==
PROVIDERS: PCP Internal Medicine; Visit Provider Ophthalmology
PROC: (CPT 66985; principal; 2024-05-24 11:00)
DX: T85.22XA Displacement of intraocular lens, initial encounter (principal); H53.8 Other visual disturbances; Z96.1 Presence of intraocular lens; H18.20 Unspecified corneal edema; H18.513 Endothelial corneal dystrophy, bilateral; Y77.8 Miscellaneous ophthalmic devices associated with adverse incidents, not elsewhere classified; Y92.9 Unspecified place or not applicable; Y83.8 Other surgical procedures as the cause of abnormal reaction of the patient, or of later complication, without mention of misadventure at the time of the procedure; I10 Essential (primary) hypertension; Z79.899 Other long term (current) drug therapy; Z88.0 Allergy status to penicillin; Z88.6 Allergy status to analgesic agent
CPT/HCPCS: 66825; J3010; J3301